=== PATIENT | female | born 1970 | race Caucasian/White ===

== ENCOUNTER → 2016-12-06 | Outpatient (CLI) | payer BC | LOC: US 14:41 | DX: R10.9 Unspecified abdominal pain (principal); Z90.710 Acquired absence of both cervix and uterus | CPT/HCPCS: 76856 ==

== ENCOUNTER → 2016-12-07 | Outpatient (CLI) | payer BC | LOC: US 11:00 | DX: R10.9 Unspecified abdominal pain (principal); K76.0 Fatty (change of) liver, not elsewhere classified | CPT/HCPCS: 76700 ==

== ENCOUNTER 2016-12-14 10:14 | Emergency (ER) | payer BC ==
[2016-12-14 11:39] LABS: HEMOGLOBIN 16.1 gm/dl (12.3-15.3); RED BLOOD COUNT 5.38 M/UL (4.00-5.10); WHITE BLOOD COUNT 8.8 K/UL (4.5-11.0)
[2016-12-14 11:55] LABS: BUN/CREATININE RATIO 18 (0-10)
== END 2016-12-14 18:30 | disposition home or self-care (01) ==
LOC: ER1 10:14
PROVIDERS: Emergency Medicine
DX: R10.31 Right lower quadrant pain (principal); R10.11 Right upper quadrant pain; R11.0 Nausea; E11.9 Type 2 diabetes mellitus without complications; Z90.49 Acquired absence of other specified parts of digestive tract; Z88.5 Allergy status to narcotic agent; Z79.84 Long term (current) use of oral hypoglycemic drugs; Z79.899 Other long term (current) drug therapy
CPT/HCPCS: 36415; 80053; 81001; 82150; 82962; 83690; 85025; 87086; 96361; 96374; 96375; 99284; J0696; J2270; J2405; J7030; J7050

== ENCOUNTER → 2016-12-17 | Outpatient (CLI) | payer BC ==
[2016-12-17 13:03] LABS: HEMOGLOBIN 15.7 gm/dl (12.3-15.3); RED BLOOD COUNT 5.26 M/UL (4.00-5.10); WHITE BLOOD COUNT 8.5 K/UL (4.5-11.0)
[2016-12-17 13:32] LABS: BUN/CREATININE RATIO 15 (0-10)
== END ==
LOC: LAB 11:41
PROVIDERS: Nurse Practitioner
DX: E11.9 Type 2 diabetes mellitus without complications (principal); E78.5 Hyperlipidemia, unspecified; R10.9 Unspecified abdominal pain
CPT/HCPCS: 36415; 80053; 80061; 82043; 83036; 84436; 84443; 84480; 85025

== ENCOUNTER 2017-02-14 22:57 | Emergency (ER) | payer BC | END 2017-02-15 01:30 | disposition home or self-care (01) | LOC: ER1 22:57 | DX: S05.02XA Injury of conjunctiva and corneal abrasion without foreign body, left eye, initial encounter (principal); E11.9 Type 2 diabetes mellitus without complications; I10 Essential (primary) hypertension; Z88.5 Allergy status to narcotic agent; Z79.84 Long term (current) use of oral hypoglycemic drugs; Z79.899 Other long term (current) drug therapy; W61.33XA Pecked by chicken, initial encounter | CPT/HCPCS: 90715; 99283 ==

== ENCOUNTER → 2021-01-19 | Outpatient (CLI) | payer BC, OTHER ==
[~2021-01-19] MED LIST: CYCLOBENZAPRINE10 MG PO; CYMBALTA60 MG PO; DIABETA 2.5 MG2.5 MG PO; GLYBURIDE5 MG PO; IBUPROFEN600 MG PO; LANTUS INS100 UTS/M1 SQ; MOVANTIK25 MG PO; NEURONTIN 300300 MG PO; NEURONTIN400 MG PO; NORCO 7.5-3251 EACH PO; PHENERGAN 25 MG25 M1 PO; PRINIVIL20 MG PO; PROZAC20 MG PO; ZOFRAN4 MG PO; [UNRECOGNIZED DRUG - CODE] PO; [UNRECOGNIZED DRUG - CODE] SC
== END ==
LOC: CT 12-16 08:00
DX: Z00.00 Encounter for general adult medical examination without abnormal findings (principal); Z85.41 Personal history of malignant neoplasm of cervix uteri; C78.01 Secondary malignant neoplasm of right lung; C54.1 Malignant neoplasm of endometrium
CPT/HCPCS: 36415; 71260; 82565; 84520; Q9963

== ENCOUNTER → 2021-02-13 | Outpatient (CLI) | payer BC, OTHER | LOC: EMI 08:44 | DX: G35 Multiple sclerosis (principal); G93.9 Disorder of brain, unspecified | CPT/HCPCS: 70553; A9577 ==

== ENCOUNTER 2022-01-08 18:12 | Emergency (ER) | payer BC ==
[2022-01-08 21:05] LABS: HEMOGLOBIN 16.7 gm/dl (12.3-15.3); RED BLOOD COUNT 5.35 M/UL (4.00-5.10); WHITE BLOOD COUNT 16.2 K/UL (4.5-11.0)
[2022-01-08 21:20] LABS: BUN/CREATININE RATIO 30 (0-10)
[2022-01-09] MEDS ORDERED: BACTRIM DS TAB1 EACH PO (02:15)
== END 2022-01-09 02:38 | disposition home or self-care (01) ==
LOC: ER1 18:12
PROVIDERS: Family Medicine
DX: E11.65 Type 2 diabetes mellitus with hyperglycemia (principal); N30.90 Cystitis, unspecified without hematuria; I25.2 Old myocardial infarction; Z85.118 Personal history of other malignant neoplasm of bronchus and lung
CPT/HCPCS: 71045; 80053; 81001; 82009; 82550; 82553; 84484; 85025; 87077; 87086; 87186; 93005; 96374; 96375; 99285; J0696; J2405; J7030

== ENCOUNTER → 2022-04-13 | Outpatient (CLI) | payer BC ==
[~2022-04-13] MED LIST changes: +BACTRIM DS TAB1 EACH PO
== END ==
LOC: KOH-I 11:58
DX: R05.9 Cough, unspecified (principal); M50.322 Other cervical disc degeneration at C5-C6 level; M54.6 Pain in thoracic spine; M54.50 Low back pain, unspecified; M25.551 Pain in right hip; M41.9 Scoliosis, unspecified; Z98.890 Other specified postprocedural states; M51.36 Other intervertebral disc degeneration, lumbar region
CPT/HCPCS: 71046; 72040; 72050; 72070; 72100; 72110; 73502